=== PATIENT | female | born 1955 | race Caucasian/White ===

== ENCOUNTER 2018-04-06 15:12 | Inpatient (IN) | payer OTHER ==
[2018-04-06 15:43] LABS: #Lymphocytes 2.7 thou/uL (1.20-3.40); #Monocytes 0.8 thou/uL (0.11-0.59); #Neutrophils 7.2 thou/uL (1.40-6.50); %Basophils 0.4 % (0.0-1.0); %Eosinophils 0.2 % (0.0-10.0); %Lymphocytes 25.2 % (21.0-51.0); %Monocytes 7.1 % (0.0-10.0); %Neutrophils 67.1 % (42.0-75.0); Hemoglobin 17.3 g/dL (12.0-16.0); Mean Corpuscular HGB CONC 34.1 g/dL (32.0-36.0); Mean Corpuscular Hemoglobin 31.6 pg (27.0-31.0); Mean Corpuscular Volume 92.7 fL (78.0-98.0); Mean Platelet Volume 8.5 fL (7.4-10.4); Platelet Count 381 thou/uL (130-400); RBC Distribution Width 12.8 % (11.5-14.5); Red Blood Cell (RBC) Count 5.49 mill/uL (4.20-5.40); White Blood Cell (WBC) Count 10.8 thou/uL (4.8-10.8)
[2018-04-06 15:45] LABS: Base Excess-Venous -8.1 mmol/L (0 (+/- 2.5)); Bicarbonate (HCO3v) 14.2 mmol/L (22.0-29.0); CO2 Tension (PvCO2) 23.9 mmHg (41.0-51.0); Calcium, Ionized 1.13 mmol/L (1.12-1.32); Hemoglobin - Calc 20.3 g/dL (12.0-18.0); O2 Tension (PvO2) 54.2 mmHg (35.0-45.0); Potassium 3.9 mmol/L (3.4-4.7); T. Carbon Dioxide 14.9 mmol/L (1.0-85.0); pH (Venous) 7.381 (7.35-7.45); vO2 Saturation-calc 88.1 % (94-98)
[2018-04-06 16:06] LABS: ALT (SGPT) 85 U/L (8-55); AST (SGOT) 43 U/L (5-34); Albumin 4.6 g/dL (3.4-4.8); Alkaline Phosphatase 112 U/L (40-150); Anion Gap 31 mmol/L (10-20); BUN (Urea Nitrogen) 29 mg/dL (9.8-20.1); Bilirubin, Total 0.8 mg/dL (0.2-1.2); Calc. Creatinine Clearance 0 mL/min (70-130); Calcium 11.4 mg/dL (7.8-10.44); Carbon Dioxide 13 mmol/L (23-31); Chloride 90 mmol/L (98-107); Estimated GFR-MDRD 24; Globulin 5.1 g/dL (2.4-3.5); Potassium 4.4 mmol/L (3.5-5.1); Protein, Total 9.7 g/dL (6.0-8.3); Sodium 130 mmol/L (136-145)
[2018-04-06 16:10] LABS: Glucose 745 mg/dL (80-115)
[2018-04-06] MEDS ORDERED: Insulin Regular 300 UNITS/3 ML VIAL ONE (16:20)
[2018-04-06 16:25] LABS: Lipase 166 U/L (8-78); Magnesium 2.4 mg/dL (1.6-2.6)
[2018-04-06] MEDS ORDERED: Insulin Regular 100 units/100 ml in NS IVPB SCH (16:30)
[2018-04-06 16:31] LABS: Osmolality, Serum 336 mOsm/kg (280-295)
[2018-04-06] MEDS ORDERED: hydrALAZINE 20 MG/ML VIAL ONE (18:12)
[2018-04-06] MEDS ORDERED: Pantoprazole 40 MG VIAL ONE (18:12)
[2018-04-06] MEDS ORDERED: Ondansetron PF 4 MG/2 ML Vial ONE ×2 (18:12→19:01)
[2018-04-06 18:21] LABS: Bilirubin Negative (Negative); Blood, Urine Negative (Negative); Clarity CLEAR (Clear); Glucose, Urine (Dipstick) >=1000 mg/dL (Negative); Leukocyte Negative (Negative); Nitrite Negative (Negative); Protein, Urine (Dipstick) Negative (Neg-Trace); Specific Gravity, Urine 1.027 (1.002-1.036); Urobilinogen 0.2 mg/dL (0.2-1.0)
[2018-04-06] MEDS: NS 0.9% w/ 20 MEQ KCL 1,000 ML IV SCH ×3 (20:58→23:54)
[2018-04-06 21:03] LABS: Anion Gap 19 mmol/L (10-20); BUN (Urea Nitrogen) 23 mg/dL (9.8-20.1); Calc. Creatinine Clearance 0 mL/min (70-130); Calcium 8.9 mg/dL (7.8-10.44); Carbon Dioxide 14 mmol/L (23-31); Chloride 108 mmol/L (98-107); Estimated GFR-MDRD 37; Glucose 344 mg/dL (80-115); Potassium 3.8 mmol/L (3.5-5.1); Sodium 137 mmol/L (136-145)
[2018-04-06] MEDS ORDERED: CCU Electrolyte Replacement 1 EACH FS ONE (21:29)
[2018-04-06] MEDS ORDERED: Bisacodyl 5 MG TAB PO PRN (21:29)
[2018-04-06] MEDS ORDERED: HumaLOG 300 UNITS/3 ML VIAL SC PRN ×2 (21:29)
[2018-04-06] MEDS ORDERED: Sodium Chloride 0.9% 1,000 ML IV PRN ×4 (21:29)
[2018-04-06] MEDS ORDERED: D5 1/2 NS w/20 mEq KCL 1,000 ML IV PRN (21:29)
[2018-04-06] MEDS ORDERED: CCU Electrolyte Replacement 1 EACH IVPB SCH (21:29)
[2018-04-06] MEDS ORDERED: NS 0.9% w/ 20 MEQ KCL 1,000 ML IV PRN ×2 (21:29)
[2018-04-06] MEDS ORDERED: Dextrose 5% in Water 1,000 ML IV PRN (21:29)
[2018-04-06] MEDS ORDERED: Dextrose 50% Abboject 50 ML SYRINGE SLOW IVP PRN (21:29)
[2018-04-06] MEDS ORDERED: Dextrose 5 %-0.45 % NaCl 1,000 ML IV PRN (21:29)
[2018-04-06] MEDS ORDERED: Senokot S 8.6-50 MG TAB PO PRN (21:29)
[2018-04-06] MEDS ORDERED: Potassium Chloride 20 MEQ TAB PO PRN (21:58)
[2018-04-06] MEDS ORDERED: Magnesium Oxide 400 MG TAB PO PRN ×2 (21:58)
[2018-04-06] MEDS ORDERED: Potassium Chloride 40 MEQ in Premix Bag 1 BAG IVPB PRN (21:58)
[2018-04-06] MEDS ORDERED: Potassium Phosphate 15 MMOL in Sodium Chloride 0.9% 250 ML 250 ML IV PRN (21:58)
[2018-04-06] MEDS ORDERED: Potassium Phosphate 12 MMOL in Sodium Chloride 0.9% 250 ML 250 ML IV PRN (21:58)
[2018-04-06] MEDS ORDERED: Magnesium 2 GM/NS 0.9% 100 ML 2 GM in Premix Bag 1 BAG IVPB PRN (21:58)
[2018-04-06] MEDS ORDERED: Potassium Chloride 40 MEQ in Sodium Chloride 0.9% 250 ML 250 ML IVPB PRN (21:58)
[2018-04-06] MEDS ORDERED: CCU ELECTROLYTE REPLACEMENT PROTOCOL FS PRN (21:58)
[2018-04-06] MEDS ORDERED: Potassium Phosphate 9 MMOL in Sodium Chloride 0.9% 100 ML IVPB PRN (21:58)
[2018-04-06] MEDS: Ondansetron PF 4 MG/2 ML Vial IVP PRN (22:23)
[2018-04-06 22:39] VITALS: BMI 24.8
[2018-04-06] MEDS: Sodium Chloride 0.9% 1,000 ML IV SCH (23:52)
[2018-04-07 01:59] LABS: Anion Gap 11 mmol/L (10-20); BUN (Urea Nitrogen) 17 mg/dL (9.8-20.1); Calc. Creatinine Clearance 53 mL/min (70-130); Calcium 8.4 mg/dL (7.8-10.44); Carbon Dioxide 15 mmol/L (23-31); Chloride 114 mmol/L (98-107); Estimated GFR-MDRD 51; Glucose 258 mg/dL (80-115); Potassium 3.8 mmol/L (3.5-5.1); Sodium 136 mmol/L (136-145)
[2018-04-07] MEDS: Sodium Chloride 0.9% 1,000 ML IV SCH (03:17)
[2018-04-07] MEDS: Ondansetron PF 4 MG/2 ML Vial IVP PRN (05:42)
[2018-04-07] MEDS: NS 0.9% w/ 20 MEQ KCL 1,000 ML IV SCH (05:42)
[2018-04-07] MEDS: Acetaminophen 325 MG TAB PO PRN (05:42)
[2018-04-07] MEDS: Levothyroxine Sodium 75 MCG TAB PO SCH (05:42)
[2018-04-07 06:53] LABS: Anion Gap 12 mmol/L (10-20); BUN (Urea Nitrogen) 14 mg/dL (9.8-20.1); Calc. Creatinine Clearance 62 mL/min (70-130); Calcium 8.4 mg/dL (7.8-10.44); Carbon Dioxide 14 mmol/L (23-31); Chloride 115 mmol/L (98-107); Estimated GFR-MDRD 63; Glucose 101 mg/dL (80-115); Potassium 3.7 mmol/L (3.5-5.1); Sodium 137 mmol/L (136-145)
--- NOTE | 2018-04-07 07:58 | HP ---
CHIEF COMPLAINT: The patient is coming in with abdominal pain and nausea. HISTORY OF PRESENT ILLNESS: This is a 63-year-old female with past medical history of hypothyroidism, gastroesophageal reflux, hyperlipidemia, hypertension, diabetes mellitus type 2, presenting with elevated blood sugars, polydipsia, polyuria, and abdominal pain with associated symptoms of nausea and vomiting, which has been ongoing for the past 2 weeks and now worsened. The patient states that her abdominal pain is generalized and is diffuse, and dull in nature. She is having associated symptoms of nausea and vomiting, and nothing seems to help, and that prompted her to come into the hospital. The patient denies any fever, chills, chest pain, palpitations, constipation, diarrhea, hematochezia, dysuria, hematuria, or melena. Of note, the patient is very noncompliant with her medications, and the patient states that she is not taking her medications and she has noticed that is the reason why her blood pressure has been elevated. REVIEW OF SYSTEMS: Positive for abdominal pain, nausea, vomiting, polydipsia, polyuria, anxiety. Otherwise, as documented in the HPI, all other systems were reviewed and are negative. PAST MEDICAL HISTORY: Hypothyroidism, GERD, hyperlipidemia, hypercholesterolemia, hypertension, diabetes mellitus type 2. PAST SURGICAL HISTORY: No noted surgical history. PSYCHIATRIC HISTORY: Depression, anxiety, suicidal ideation with history that includes suicidal attempts by cutting her wrists and she attempted to kill herself on 02/15/2015. SOCIAL HISTORY: The patient denies alcohol use, denies any illicit drug use. The patient has no smoking history. FAMILY HISTORY: Reviewed and noncontributory to this visit. ALLERGIES: NO KNOWN DRUG ALLERGIES. CURRENT MEDICATIONS: 1. Abilify 10 mg. 2. Atorvastatin 80 mg. 3. Hydrochlorothiazide 25 mg. 4. Levothyroxine 75 mcg. 5. Venlafaxine 150 mg. 6. Metformin 500 mg. PHYSICAL EXAMINATION: VITAL SIGNS: The patient's blood pressure is 161/93, pulse of 109, respiratory rate was 14, temperature 98.7. GENERAL: The patient is alert, oriented x3, not in acute distress. The patient is lying in bed. The patient is able to speak to me in full sentences. HEENT: Normocephalic and atraumatic. Pupils are equal, round, and reactive to light. Extraocular movements are intact. No scleral icterus. No conjunctival pallor. Mucous membranes are dry. NECK: No JVD. Trachea is midline. Full range of motion. Supple. LUNGS: Clear to auscultation bilaterally. No wheezing, no rales, no rhonchi appreciated. CARDIAC: Positive S1 and S2. Regular rate and rhythm. No murmurs, no gallops, no rubs appreciated. ABDOMEN: Mild tenderness with palpation of the abdomen. Normal bowel sounds. No peritoneal signs. No palpable masses. NEUROLOGIC: Cranial nerves 2 through 12 are grossly intact. No neurological deficits noted. EXTREMITIES: The patient has 5/5 upper extremity strength and 5/5 lower extremity strength. Good pulses in the upper and lower extremities bilaterally. No edema noted. SKIN: Warm, dry, and intact. PSYCHIATRIC: The patient is alert, oriented x3. The patient has a normal affect. LABORATORY DATA: WBC is 10.8, hemoglobin is 17.3, hematocrit is 50.9, platelets 381. VBGs, pH is 7.3, pCO2 is 23.9, pO2 is 54.2, bicarbonate 14.2. Electrolytes, sodium is 130, potassium is 4.4, chloride is 90, carbon dioxide of 13, anion gap of 31. BUN is 29, creatinine is 2.07. Glucose of 745. Magnesium is 2.4. Lipase is 166. Urinalysis is negative for nitrites and leukocyte esterase. ASSESSMENT AND PLAN: This is a 63-year-old female who has been very noncompliant with her medication, is being admitted for; 1. Hyperglycemic hyperosmolar syndrome. At this point, the patient has been started on the diabetic ketoacidosis protocol. We will continue the patient on the diabetic ketoacidosis protocol. We have admitted the patient to the [facility]. We will monitor the patient closely. We will follow up on strict glucose control. We will try and keep the patient's glucose between 140 to 180. We have started insulin sliding scale. We will adjust the patient's diabetes medications. 2. Acute kidney injury due to dehydration. The patient is on IV hydration. We will continue the patient on IV hydration. We will monitor morning labs. We will follow up on morning labs. 3. Hyponatremia due to hyperglycemia. At this point, we will continue to correct the patient's glucose and we will follow up on morning labs. 4. Dehydration. We will continue the patient on IV hydration. We will monitor the patient's hydration status. 5. Hyperlipidemia. We will continue the patient on her home medications. 6. Hypertension, currently uncontrolled. We will continue the patient on home medications and we will advice the patient to be compliant with medications. 7. Deep venous thrombosis and gastrointestinal prophylaxis. Job ID: [id number]
[2018-04-07] MEDS ORDERED: Dextrose 5% in Water 1,000 ML IV PRN (08:39)
[2018-04-07] MEDS ORDERED: Dextrose 50% Abboject 50 ML SYRINGE SLOW IVP PRN (08:39)
[2018-04-07] MEDS: Famotidine/PF 20 mg/2ml Vial SLOW IVP SCH ×2 (09:50→20:54)
[2018-04-07] MEDS: Famotidine 20 MG TAB PO SCH ×2 (10:08→20:53)
[2018-04-07] MEDS: Venlafaxine HCl XR 150 MG CAP PO SCH (10:08)
[2018-04-07] MEDS: metFORMIN XR 500 MG TAB PO SCH (10:08)
[2018-04-07] MEDS: Enoxaparin Sodium 40 MG/0.4 ML SYRINGE SC SCH (10:08)
[2018-04-07] MEDS: 1/2 NS w/KCL 20 mEq 1,000 ML IV SCH (12:43)
[2018-04-07] MEDS: Insulin Regular 300 UNITS/3 ML VIAL SC PRN ×3 (12:44→20:54)
[2018-04-07 13:03] LABS: #Basophils 0.1 thou/uL (0.0-0.2); #Lymphocytes 2.7 thou/uL (1.20-3.40); #Monocytes 1.2 thou/uL (0.11-0.59); %Basophils 0.7 % (0.0-1.0); %Eosinophils 0.3 % (0.0-10.0); %Lymphocytes 22.2 % (21.0-51.0); %Monocytes 9.7 % (0.0-10.0); %Neutrophils 67.1 % (42.0-75.0); Mean Corpuscular HGB CONC 33.6 g/dL (32.0-36.0); Mean Corpuscular Hemoglobin 31.4 pg (27.0-31.0); Mean Corpuscular Volume 93.4 fL (78.0-98.0); Mean Platelet Volume 8.9 fL (7.4-10.4); Platelet Count 313 thou/uL (130-400); RBC Distribution Width 12.9 % (11.5-14.5); Red Blood Cell (RBC) Count 4.45 mill/uL (4.20-5.40)
--- NOTE | 2018-04-07 16:56 | CON ---
DATE OF CONSULTATION: 04/07/2018 REASON FOR CONSULTATION: Hyperosmolar nonketotic hyperglycemia. HISTORY OF PRESENT ILLNESS: This is a 63-year-old female, who essentially stopped taking her metformin about 2 weeks ago. She developed polyuria, polydipsia, generalized malaise. She was admitted last time with blood sugar over 700. She was treated with fluid resuscitation and IV insulin and is now better. PAST MEDICAL HISTORY: 1. Bipolar disorder. 2. Type 2 diabetes mellitus, on metformin only. 3. Hypothyroidism. 4. Hyperlipidemia. 5. Gastroesophageal reflux disease. 6. Hypertension. PAST SURGICAL HISTORY: None. SOCIAL HISTORY: The patient does not smoke, does not use illicit drugs. FAMILY MEDICAL HISTORY: Unremarkable. ALLERGIES: NONE. MEDICATIONS: Medications prior to admission: 1. Abilify 10 mg daily. 2. Atorvastatin 80 mg daily. 3. Hydrochlorothiazide 25 mg daily. 4. Metformin XL 500 mg daily. 5. Effexor 150 mg daily. 6. Levothyroxine 75 mcg daily. PHYSICAL EXAMINATION: VITAL SIGNS: Temperature is 98.4, pulse 89, respirations 13, O2 saturation 98% on room air, and blood pressure 126/66. GENERAL: She is awake and alert, in no distress. HEENT: Unremarkable. NECK: No JVD. LUNGS: Clear. CARDIAC: S1 and S2, regular. ABDOMEN: Somewhat tympanic, but bowel sounds normoactive. EXTREMITIES: No clubbing, cyanosis, or edema. LABORATORY DATA: White cell count 10.8, hematocrit 50.9, platelet count 381. Sodium 137, potassium 3.7, chloride 115, CO2 of 14, anion gap 12, BUN 14, creatinine 0.9, last glucose 186. ASSESSMENT: Hyperosmolar nonketotic hyperglycemia - better with hydration and insulin. PLAN: 1. Discontinue insulin drip. 2. Restart metformin. 3. Start a moderate sliding scale. 4. She is doing well this afternoon. She can transfer out to the floor. Job ID: [id number]
--- NOTE | 2018-04-07 17:56 | PDOC.PN ---
- Subjective Encounter Start Date: 04/07/18 Encounter Start Time: 11:00 Pt seen for followup re: hyperosmolar hyperglycemic state. Denies chest pain, shortness of breath, fevers or chills. - Objective Resuscitation Status - Order Detail: 04/06/18 21:29 Resuscitation Status Routine Resuscitation Status: FULL: Full Resuscitation MAR Reviewed: Yes Vital Signs & Weight: Vital Signs (12 hours) Temp Pulse Resp BP Pulse Ox 04/07/18 11:35 99.0 F 91 18 133/77 95 04/07/18 07:55 98 04/07/18 07:28 98.4 F 89 13 126/66 95 Weight Weight 135 lb 14.4 oz I&O: 04/06/18 04/07/18 04/08/18 06:59 06:59 06:59 Intake Total 3558 1200 Output Total 600 600 Balance 2958 600 Result Diagrams: 04/07/18 05:36 04/07/18 05:38 Additional Labs: Accuchecks 04/07/18 04/07/18 04/07/18 16:38 10:39 08:12 POC Glucose 265 H 281 H 186 H 04/07/18 04/07/18 04/07/18 06:40 05:40 04:02 POC Glucose 139 H 96 197 H 04/07/18 04/07/18 04/06/18 02:25 00:32 23:28 POC Glucose 284 H 223 H 176 H 04/06/18 04/06/18 04/06/18 22:11 21:00 19:59 POC Glucose 221 H 292 H 337 H 04/06/18 04/06/18 18:28 15:19 POC Glucose 346 H Greater than 550 H* Phys Exam - Physical Examination Constitutional: NAD HEENT: moist MMs, sclera anicteric, oral pharynx no lesions, 2+ tonsils Neck: no nodes, no JVD, supple, full ROM Respiratory: no wheezing, no rales, no rhonchi, clear to auscultation bilateral Cardiovascular: RRR, no rub S1, S2 Gastrointestinal: soft, non-tender, no distention, positive bowel sounds Neurological: moves all 4 limbs Psychiatric: normal affect Deviation from normal: Oriented to person and place, not to time Dx/Plan (1) Uncontrolled type 2 DM with hyperosmolar nonketotic hyperglycemia Code(s): E11.00 - TYPE 2 DIAB W HYPROSM W/O NONKET HYPRGLY-HYPROS COMA ([facility]) Status: Acute Comment: Improved, transitioning to SC insulin (2) Dyslipidemia Code(s): E78.5 - HYPERLIPIDEMIA, UNSPECIFIED Status: Chronic Comment: on statin (3) Hypothyroidism Code(s): E03.9 - HYPOTHYROIDISM, UNSPECIFIED Status: Chronic (4) GERD (gastroesophageal reflux disease) Code(s): K21.9 - GASTRO-ESOPHAGEAL REFLUX DISEASE WITHOUT ESOPHAGITIS Status: Chronic Comment: stable (5) Bipolar disorder Code(s): F31.9 - BIPOLAR DISORDER, UNSPECIFIED Status: Chronic Comment: on Abilify - Plan * . Review of Systems - Review of Systems Constitutional: negative: fever, chills, sweats, weakness, malaise Respiratory: negative: Cough, Shortness of Breath, SOB with Excertion, Pleuritic Pain, Wheezing Cardiovascular: negative: chest pain, palpitations, orthopnea, paroxysmal nocturnal dyspnea, edema, light headedness Gastrointestinal: negative: Nausea, Vomiting, Abdominal Pain, Diarrhea, Constipation, Melena, Hematochezia Genitourinary: negative: Dysuria, Frequency, Incontinence, Hematuria, Retention Skin: negative: Rash, Lesions, Jeanmarie, Bruising - Medications/Allergies Allergies/Adverse Reactions: Allergies Allergy/AdvReac Type Severity Reaction Status Date / Time No Known Allergies Allergy Verified 04/06/18 20:24 Medications: Current Medications Acetaminophen (Tylenol) 650 mg PO Q4H PRN PRN Reason: Headache/Fever/Mild Pain (1-3) Last Admin: 04/07/18 05:42 Dose: 650 mg Aripiprazole (Abilify) 10 mg PO HS K[facility] Atorvastatin Calcium (Lipitor) 80 mg PO HS [facility] Bisacodyl (Dulcolax) 10 mg PO DAILYPRN PRN PRN Reason: Constipation Dextrose/Water (Dextrose 50%) 25 gm SLOW IVP PRN PRN PRN Reason: Hypoglycemia Enoxaparin Sodium (Lovenox) 40 mg SC 0900 [facility] Last Admin: 04/07/18 10:08 Dose: 40 mg Famotidine (Pepcid) 20 mg SLOW IVP Q12HR [facility] Last Admin: 04/07/18 09:50 Dose: Not Given Famotidine (Pepcid) 20 mg PO BID [facility] Last Admin: 04/07/18 10:08 Dose: 20 mg Glucagon (Glucagon) 1 mg IM PRN PRN PRN Reason: Hypoglycemia Glucagon (Glucagon) 1 mg IM PRN PRN PRN Reason: Hypoglycemia Potassium Chloride/Sodium Chloride (1/2 Ns W/Kcl 20 Meq) 1,000 mls @ 75 mls/hr IV .[id number] [facility] Last Admin: 04/07/18 12:43 Dose: 1,000 mls Dextrose/Water (D5w) 1,000 mls @ 0 mls/hr IV .Q0M PRN PRN Reason: Hypoglycemia Insulin Human Regular (Humulin R) 0 units SC .MODERATE SLIDING SC PRN PRN Reason: Moderate Correctional Scale Last Admin: 04/07/18 16:42 Dose: 6 unit Levothyroxine Sodium (Synthroid) 75 mcg PO 0600 [facility] Last Admin: 04/07/18 05:42 Dose: 75 mcg Magnesium Oxide (Magnesium Oxide) 400 mg PO BIDPRN PRN PRN Reason: FOR SERUM MAG 1.4 - 2.0 Magnesium Oxide (Magnesium Oxide) 800 mg PO PRN PRN PRN Reason: FOR SERUM MAG < 1.4 Metformin HCl (Glucophage Xr) 500 mg PO DAILY [facility] Last Admin: 04/07/18 10:08 Dose: 500 mg Ccu Electrolyte (Replacement Protocol) 0 each FS PRN PRN PRN Reason: FOR ELECTROLYTE REPLACEMENT Ondansetron HCl (Zofran Odt) 4 mg PO Q6H PRN PRN Reason: Nausea/Vomiting Ondansetron HCl (Zofran) 4 mg IVP Q6H PRN PRN Reason: Nausea/Vomiting Last Admin: 04/07/18 05:42 Dose: 4 mg Senna/Docusate Sodium (Senokot S) 2 tab PO BID PRN PRN Reason: Constipation Venlafaxine HCl (Effexor Xr) 150 mg PO DAILY [facility] Last Admin: 04/07/18 10:08 Dose: 150 mg
[2018-04-07] MEDS: Atorvastatin Calcium 40 MG TAB PO SCH (20:53)
[2018-04-07] MEDS: Aripiprazole 10 MG TAB PO SCH (20:53)
[2018-04-08] MEDS: 1/2 NS w/KCL 20 mEq 1,000 ML IV SCH ×2 (02:14→16:43)
[2018-04-08 04:08] LABS: #Basophils 0.1 thou/uL (0.0-0.2); #Eosinphils 0.4 thou/uL (0.0-0.7); #Lymphocytes 4.1 thou/uL (1.20-3.40); #Neutrophils 5.9 thou/uL (1.40-6.50); %Basophils 0.8 % (0.0-1.0); %Eosinophils 3.4 % (0.0-10.0); %Lymphocytes 35.5 % (21.0-51.0); %Monocytes 8.9 % (0.0-10.0); %Neutrophils 51.4 % (42.0-75.0); Hemoglobin 13.8 g/dL (12.0-16.0); Mean Corpuscular HGB CONC 34.1 g/dL (32.0-36.0); Mean Corpuscular Hemoglobin 31.2 pg (27.0-31.0); Mean Corpuscular Volume 91.6 fL (78.0-98.0); Mean Platelet Volume 8.2 fL (7.4-10.4); Platelet Count 302 thou/uL (130-400); RBC Distribution Width 12.7 % (11.5-14.5); Red Blood Cell (RBC) Count 4.43 mill/uL (4.20-5.40); White Blood Cell (WBC) Count 11.4 thou/uL (4.8-10.8)
[2018-04-08 04:26] LABS: Carbon Dioxide 18 mmol/L (23-31); Glucose 235 mg/dL (80-115)
[2018-04-08 04:30] LABS: Chloride 109 mmol/L (98-107); Potassium 3.2 mmol/L (3.5-5.1); Sodium 133 mmol/L (136-145)
[2018-04-08 04:31] LABS: Calcium 8.3 mg/dL (7.8-10.44)
[2018-04-08 04:33] LABS: Anion Gap 10 mmol/L (10-20)
[2018-04-08 04:34] LABS: Calc. Creatinine Clearance 64 mL/min (70-130); Estimated GFR-MDRD 62
[2018-04-08 04:36] LABS: BUN (Urea Nitrogen) Less than 20 mg/dL (9.8-20.1)
[2018-04-08] MEDS: Levothyroxine Sodium 75 MCG TAB PO SCH (06:07)
[2018-04-08] MEDS: Insulin Regular 300 UNITS/3 ML VIAL SC PRN ×4 (06:08→21:01)
[2018-04-08] MEDS ORDERED: Potassium Chloride 20 MEQ TAB PO SCH (09:30)
[2018-04-08] MEDS: Enoxaparin Sodium 40 MG/0.4 ML SYRINGE SC SCH (09:32)
[2018-04-08] MEDS: Famotidine/PF 20 mg/2ml Vial SLOW IVP SCH ×2 (09:32→21:15)
[2018-04-08] MEDS: Famotidine 20 MG TAB PO SCH ×2 (09:32→21:02)
[2018-04-08] MEDS: metFORMIN XR 500 MG TAB PO SCH (09:32)
[2018-04-08] MEDS: Venlafaxine HCl XR 150 MG CAP PO SCH (09:33)
--- NOTE | 2018-04-08 12:18 | PRG ---
DATE OF SERVICE: 04/08/2018 SUBJECTIVE: She is awake, alert, feels fine, has no acute complaints. OBJECTIVE: VITAL SIGNS: On exam, temperature 98.8, pulse 90, respirations 15, O2 sat 95%, and blood pressure 130/69. HEENT: Unremarkable. NECK: No JVD. CHEST: Clear. CARDIAC: S1 and S2, regular. ABDOMEN: Soft. EXTREMITIES: No edema. LABORATORY DATA: White blood cell count 11.4, hematocrit 40.6, and platelet count 302. Sodium 133, potassium 3.2, chloride 109, CO2 18. BUN less than 20, creatinine 0.9. Glucose 388. ASSESSMENT: 1. Noncompliant diabetic. 2. Resolved hyperosmolar nonketotic hyperglycemia. PLAN: Basically awaiting for regulation of her blood sugars. She is stable for transfer to the floor. No further recommendations. Will sign off. Please recall further assistance, if needed. Job ID: [id number]
--- NOTE | 2018-04-08 13:20 | PDOC.PN ---
- Subjective Encounter Start Date: 04/08/18 Encounter Start Time: 10:20 Pt seen for followup re: hypokalemia. Denies any complaints. - Objective Resuscitation Status - Order Detail: 04/06/18 21:29 Resuscitation Status Routine Resuscitation Status: FULL: Full Resuscitation Vital Signs & Weight: Vital Signs (12 hours) Temp Pulse Resp BP Pulse Ox 04/08/18 11:11 98.8 F 90 15 130/69 95 04/08/18 08:00 95 04/08/18 07:31 98.5 F 72 16 107/60 93 L 04/08/18 03:40 98.0 F 84 18 154/79 H 95 Weight Weight 140 lb 8 oz I&O: 04/07/18 04/08/18 04/09/18 06:59 06:59 06:59 Intake Total 3558 3470 883 Output Total 600 2400 600 Balance 2958 1070 283 Result Diagrams: 04/08/18 03:43 04/08/18 03:43 Additional Labs: Accuchecks 04/08/18 04/08/18 04/07/18 10:32 06:08 20:19 POC Glucose 388 H 231 H 272 H 04/07/18 16:38 POC Glucose 265 H Phys Exam - Physical Examination Constitutional: NAD HEENT: moist MMs Neck: supple Respiratory: clear to auscultation bilateral Cardiovascular: RRR Gastrointestinal: soft Neurological: moves all 4 limbs Psychiatric: normal affect Dx/Plan (1) Hypokalemia Code(s): E87.6 - HYPOKALEMIA Status: Acute Comment: replace potassium (2) Dyslipidemia Code(s): E78.5 - HYPERLIPIDEMIA, UNSPECIFIED Status: Chronic Comment: on statin (3) DM2 (diabetes mellitus, type 2) Status: Chronic Comment: on accuchecks, insulin sliding scale and metformin. Check HbA1c (4) Hypothyroidism Code(s): E03.9 - HYPOTHYROIDISM, UNSPECIFIED Status: Chronic Comment: continue synthroid (5) GERD (gastroesophageal reflux disease) Code(s): K21.9 - GASTRO-ESOPHAGEAL REFLUX DISEASE WITHOUT ESOPHAGITIS Status: Chronic Comment: stable (6) Bipolar disorder Code(s): F31.9 - BIPOLAR DISORDER, UNSPECIFIED Status: Chronic Comment: continue Abilify (7) Uncontrolled type 2 DM with hyperosmolar nonketotic hyperglycemia Code(s): E11.00 - TYPE 2 DIAB W HYPROSM W/O NONKET HYPRGLY-HYPROS COMA ([facility]) Status: Resolved - Plan * . Review of Systems - Review of Systems Respiratory: negative: Cough, Shortness of Breath, SOB with Excertion, Pleuritic Pain, Wheezing Cardiovascular: negative: chest pain, palpitations, orthopnea, paroxysmal nocturnal dyspnea, edema, light headedness - Medications/Allergies Allergies/Adverse Reactions: Allergies Allergy/AdvReac Type Severity Reaction Status Date / Time No Known Allergies Allergy Verified 04/06/18 20:24 Medications: Current Medications Acetaminophen (Tylenol) 650 mg PO Q4H PRN PRN Reason: Headache/Fever/Mild Pain (1-3) Last Admin: 04/07/18 05:42 Dose: 650 mg Aripiprazole (Abilify) 10 mg PO HS [facility] Last Admin: 04/07/18 20:53 Dose: 10 mg Atorvastatin Calcium (Lipitor) 80 mg PO HS [facility] Last Admin: 04/07/18 20:53 Dose: 80 mg Bisacodyl (Dulcolax) 10 mg PO DAILYPRN PRN PRN Reason: Constipation Dextrose/Water (Dextrose 50%) 25 gm SLOW IVP PRN PRN PRN Reason: Hypoglycemia Enoxaparin Sodium (Lovenox) 40 mg SC 0900 [facility] Last Admin: 04/08/18 09:32 Dose: 40 mg Famotidine (Pepcid) 20 mg SLOW IVP Q12HR [facility] Last Admin: 04/08/18 09:32 Dose: Not Given Famotidine (Pepcid) 20 mg PO BID [facility] Last Admin: 04/08/18 09:32 Dose: 20 mg Glucagon (Glucagon) 1 mg IM PRN PRN PRN Reason: Hypoglycemia Potassium Chloride/Sodium Chloride (1/2 Ns W/Kcl 20 Meq) 1,000 mls @ 75 mls/hr IV .[id number] [facility] Last Admin: 04/08/18 02:14 Dose: 1,000 mls Dextrose/Water (D5w) 1,000 mls @ 0 mls/hr IV .Q0M PRN PRN Reason: Hypoglycemia Insulin Human Regular (Humulin R) 0 units SC .MODERATE SLIDING SC PRN PRN Reason: Moderate Correctional Scale Last Admin: 04/08/18 10:49 Dose: 10 unit Levothyroxine Sodium (Synthroid) 75 mcg PO 0600 [facility] Last Admin: 04/08/18 06:07 Dose: 75 mcg Magnesium Oxide (Magnesium Oxide) 400 mg PO BIDPRN PRN PRN Reason: FOR SERUM MAG 1.4 - 2.0 Magnesium Oxide (Magnesium Oxide) 800 mg PO PRN PRN PRN Reason: FOR SERUM MAG < 1.4 Metformin HCl (Glucophage Xr) 500 mg PO DAILY [facility] Last Admin: 04/08/18 09:32 Dose: 500 mg Ccu Electrolyte (Replacement Protocol) 0 each FS PRN PRN PRN Reason: FOR ELECTROLYTE REPLACEMENT Ondansetron HCl (Zofran Odt) 4 mg PO Q6H PRN PRN Reason: Nausea/Vomiting Ondansetron HCl (Zofran) 4 mg IVP Q6H PRN PRN Reason: Nausea/Vomiting Last Admin: 04/07/18 05:42 Dose: 4 mg Senna/Docusate Sodium (Senokot S) 2 tab PO BID PRN PRN Reason: Constipation Venlafaxine HCl (Effexor Xr) 150 mg PO DAILY [facility] Last Admin: 04/08/18 09:33 Dose: 150 mg
[2018-04-08 13:45] LABS: Hemoglobin A1c 11.1 % (4.0-6.0)
[2018-04-08] MEDS: Acetaminophen 325 MG TAB PO PRN (17:36)
[2018-04-08] MEDS: Atorvastatin Calcium 40 MG TAB PO SCH (21:02)
[2018-04-08] MEDS: Aripiprazole 10 MG TAB PO SCH (21:15)
[2018-04-09] MEDS: 1/2 NS w/KCL 20 mEq 1,000 ML IV SCH ×3 (00:45→21:43)
[2018-04-09] MEDS: Levothyroxine Sodium 75 MCG TAB PO SCH (05:15)
[2018-04-09] MEDS: Insulin Regular 300 UNITS/3 ML VIAL SC PRN ×3 (06:16→22:04)
[2018-04-09 07:10] LABS: #Basophils 0.1 thou/uL (0.0-0.2); #Eosinphils 0.4 thou/uL (0.0-0.7); #Lymphocytes 2.9 thou/uL (1.20-3.40); #Neutrophils 8.7 thou/uL (1.40-6.50); %Basophils 0.9 % (0.0-1.0); %Eosinophils 3.1 % (0.0-10.0); %Monocytes 7.9 % (0.0-10.0); %Neutrophils 66.1 % (42.0-75.0); Mean Corpuscular HGB CONC 33.3 g/dL (32.0-36.0); Mean Corpuscular Hemoglobin 31.1 pg (27.0-31.0); Mean Corpuscular Volume 93.4 fL (78.0-98.0); Mean Platelet Volume 8.7 fL (7.4-10.4); Platelet Count 296 thou/uL (130-400); RBC Distribution Width 12.9 % (11.5-14.5); Red Blood Cell (RBC) Count 4.81 mill/uL (4.20-5.40); White Blood Cell (WBC) Count 13.1 thou/uL (4.8-10.8)
[2018-04-09 07:43] LABS: Anion Gap 16 mmol/L (10-20); BUN (Urea Nitrogen) 8 mg/dL (9.8-20.1); Calc. Creatinine Clearance 68 mL/min (70-130); Calcium 8.9 mg/dL (7.8-10.44); Carbon Dioxide 14 mmol/L (23-31); Chloride 105 mmol/L (98-107); Estimated GFR-MDRD 67; Glucose 282 mg/dL (80-115); Potassium 4.3 mmol/L (3.5-5.1); Sodium 131 mmol/L (136-145)
[2018-04-09] MEDS: Venlafaxine HCl XR 150 MG CAP PO SCH (09:06)
[2018-04-09] MEDS: Famotidine 20 MG TAB PO SCH ×2 (09:06→20:55)
[2018-04-09] MEDS: Enoxaparin Sodium 40 MG/0.4 ML SYRINGE SC SCH (09:07)
[2018-04-09] MEDS: Acetaminophen 325 MG TAB PO PRN ×3 (09:07→20:54)
[2018-04-09] MEDS: Famotidine/PF 20 mg/2ml Vial SLOW IVP SCH ×2 (11:15→20:50)
[2018-04-09] MEDS: metFORMIN XR 500 MG TAB PO SCH (11:16)
--- NOTE | 2018-04-09 14:20 | PDOC.PN ---
- Subjective Encounter Start Date: 04/09/18 Encounter Start Time: 09:40 Pt seen for followup re: hyperglycemia. Denies chest pain,shortness of breath, fevers or chills. - Objective Resuscitation Status - Order Detail: 04/06/18 21:29 Resuscitation Status Routine Resuscitation Status: FULL: Full Resuscitation MAR Reviewed: Yes Vital Signs & Weight: Vital Signs (12 hours) Temp Pulse Resp BP Pulse Ox 04/09/18 08:13 98.1 F 84 16 135/78 96 04/09/18 03:42 98.3 F 87 20 141/84 H 92 L Weight Weight 140 lb 8 oz I&O: 04/08/18 04/09/18 04/10/18 06:59 06:59 06:59 Intake Total 3470 2453 Output Total 2400 600 Balance 1070 1853 Result Diagrams: 04/10/18 05:56 04/10/18 05:56 Additional Labs: Accuchecks 04/09/18 04/09/18 04/08/18 11:23 05:19 20:50 POC Glucose 338 H 197 H 294 H 04/08/18 16:50 POC Glucose 209 H Labs reviewed by me Phys Exam - Physical Examination Constitutional: NAD HEENT: moist MMs Neck: supple Respiratory: clear to auscultation bilateral Cardiovascular: RRR Gastrointestinal: soft Neurological: moves all 4 limbs Psychiatric: normal affect Dx/Plan (1) Hyperglycemia Code(s): R73.9 - HYPERGLYCEMIA, UNSPECIFIED Status: Acute Comment: increase metformin dose, add glyburide. (2) Dyslipidemia Code(s): E78.5 - HYPERLIPIDEMIA, UNSPECIFIED Status: Chronic Comment: continue statin (3) DM2 (diabetes mellitus, type 2) Status: Chronic Comment: metformin dose being increased, glyburide added (4) Hypothyroidism Code(s): E03.9 - HYPOTHYROIDISM, UNSPECIFIED Status: Chronic Comment: on synthroid (5) GERD (gastroesophageal reflux disease) Code(s): K21.9 - GASTRO-ESOPHAGEAL REFLUX DISEASE WITHOUT ESOPHAGITIS Status: Chronic Comment: stable (6) Bipolar disorder Code(s): F31.9 - BIPOLAR DISORDER, UNSPECIFIED Status: Chronic Comment: continue Abilify (7) Uncontrolled type 2 DM with hyperosmolar nonketotic hyperglycemia Code(s): E11.00 - TYPE 2 DIAB W HYPROSM W/O NONKET HYPRGLY-HYPROS COMA ([facility]) Status: Resolved (8) Hypokalemia Code(s): E87.6 - HYPOKALEMIA Status: Resolved - Plan * . Mild hyponatremia, likely asymptomatic Review of Systems - Review of Systems Respiratory: negative: Cough, Shortness of Breath, SOB with Excertion, Pleuritic Pain, Wheezing Cardiovascular: negative: chest pain, palpitations, orthopnea, paroxysmal nocturnal dyspnea, edema, light headedness - Medications/Allergies Allergies/Adverse Reactions: Allergies Allergy/AdvReac Type Severity Reaction Status Date / Time No Known Allergies Allergy Verified 04/06/18 20:24 Medications: Current Medications Acetaminophen (Tylenol) 650 mg PO Q4H PRN PRN Reason: Headache/Fever/Mild Pain (1-3) Last Admin: 04/09/18 09:07 Dose: 650 mg Aripiprazole (Abilify) 10 mg PO HS [facility] Last Admin: 04/08/18 21:15 Dose: 10 mg Atorvastatin Calcium (Lipitor) 80 mg PO [facility] Last Admin: 04/08/18 21:02 Dose: 80 mg Bisacodyl (Dulcolax) 10 mg PO DAILYPRN PRN PRN Reason: Constipation Dextrose/Water (Dextrose 50%) 25 gm SLOW IVP PRN PRN PRN Reason: Hypoglycemia Enoxaparin Sodium (Lovenox) 40 mg SC 0900 [facility] Last Admin: 04/09/18 09:07 Dose: 40 mg Famotidine (Pepcid) 20 mg SLOW IVP Q12HR [facility] Last Admin: 04/09/18 11:15 Dose: Not Given Famotidine (Pepcid) 20 mg PO BID [facility] Last Admin: 04/09/18 09:06 Dose: 20 mg Glucagon (Glucagon) 1 mg IM PRN PRN PRN Reason: Hypoglycemia Glyburide (Micronase) 2.5 mg PO QAM-WM [facility] Glyburide (Micronase) 2.5 mg PO ONE [facility] Potassium Chloride/Sodium Chloride (1/2 Ns W/Kcl 20 Meq) 1,000 mls @ 75 mls/hr IV .[id number] [facility] Last Admin: 04/09/18 05:15 Dose: 1,000 mls Dextrose/Water (D5w) 1,000 mls @ 0 mls/hr IV .Q0M PRN PRN Reason: Hypoglycemia Insulin Human Regular (Humulin R) 0 units SC .MODERATE SLIDING SC PRN PRN Reason: Moderate Correctional Scale Last Admin: 04/09/18 06:16 Dose: 2 unit Levothyroxine Sodium (Synthroid) 75 mcg PO 0600 [facility] Last Admin: 04/09/18 05:15 Dose: 75 mcg Magnesium Oxide (Magnesium Oxide) 400 mg PO BIDPRN PRN PRN Reason: FOR SERUM MAG 1.4 - 2.0 Magnesium Oxide (Magnesium Oxide) 800 mg PO PRN PRN PRN Reason: FOR SERUM MAG < 1.4 Metformin HCl (Glucophage Xr) 1,000 mg PO QAM-[facility] Metformin HCl (Glucophage Xr) 500 mg PO ONE [facility] Ccu Electrolyte (Replacement Protocol) 0 each FS PRN PRN PRN Reason: FOR ELECTROLYTE REPLACEMENT Ondansetron HCl (Zofran Odt) 4 mg PO Q6H PRN PRN Reason: Nausea/Vomiting Ondansetron HCl (Zofran) 4 mg IVP Q6H PRN PRN Reason: Nausea/Vomiting Last Admin: 04/07/18 05:42 Dose: 4 mg Senna/Docusate Sodium (Senokot S) 2 tab PO BID PRN PRN Reason: Constipation Venlafaxine HCl (Effexor Xr) 150 mg PO DAILY [facility] Last Admin: 04/09/18 09:06 Dose: 150 mg
[2018-04-09] MEDS ORDERED: metFORMIN XR 500 MG TAB PO SCH (14:30)
[2018-04-09] MEDS ORDERED: glyBURIDE 2.5 MG TAB PO SCH (14:30)
[2018-04-09] MEDS ORDERED: Sodium Chloride 0.65% Nasal 44 ML BOT EA NARE PRN (19:27)
[2018-04-09] MEDS: Atorvastatin Calcium 40 MG TAB PO SCH (20:54)
[2018-04-09] MEDS: Aripiprazole 10 MG TAB PO SCH (22:04)
[2018-04-10 06:24] LABS: #Basophils 0.1 thou/uL (0.0-0.2); #Eosinphils 0.3 thou/uL (0.0-0.7); #Lymphocytes 2.9 thou/uL (1.20-3.40); #Neutrophils 6.6 thou/uL (1.40-6.50); %Basophils 1.2 % (0.0-1.0); %Lymphocytes 26.6 % (21.0-51.0); %Monocytes 9.1 % (0.0-10.0); %Neutrophils 60.1 % (42.0-75.0); Hemoglobin 15.4 g/dL (12.0-16.0); Mean Corpuscular HGB CONC 33.4 g/dL (32.0-36.0); Mean Corpuscular Hemoglobin 31.4 pg (27.0-31.0); Mean Platelet Volume 9.1 fL (7.4-10.4); Platelet Count 295 thou/uL (130-400)
[2018-04-10 06:43] LABS: Anion Gap 13 mmol/L (10-20); BUN (Urea Nitrogen) 10 mg/dL (9.8-20.1); Calc. Creatinine Clearance 69 mL/min (70-130); Calcium 9.2 mg/dL (7.8-10.44); Carbon Dioxide 16 mmol/L (23-31); Chloride 109 mmol/L (98-107); Estimated GFR-MDRD 68; Glucose 211 mg/dL (80-115); Potassium 4.4 mmol/L (3.5-5.1); Sodium 134 mmol/L (136-145)
[2018-04-10] MEDS: Insulin Regular 300 UNITS/3 ML VIAL SC PRN ×4 (06:44→21:15)
[2018-04-10] MEDS: Levothyroxine Sodium 75 MCG TAB PO SCH (07:31)
[2018-04-10] MEDS ORDERED: glyBURIDE 2.5 MG TAB PO SCH ×2 (08:00→19:15)
[2018-04-10] MEDS: Famotidine 20 MG TAB PO SCH ×2 (08:44→20:00)
[2018-04-10] MEDS: Venlafaxine HCl XR 150 MG CAP PO SCH (08:44)
[2018-04-10] MEDS: metFORMIN XR 500 MG TAB PO SCH (08:44)
[2018-04-10] MEDS: 1/2 NS w/KCL 20 mEq 1,000 ML IV SCH ×2 (10:00→17:13)
[2018-04-10] MEDS: Enoxaparin Sodium 40 MG/0.4 ML SYRINGE SC SCH (10:00)
[2018-04-10] MEDS: Famotidine/PF 20 mg/2ml Vial SLOW IVP SCH ×2 (10:01→20:02)
--- NOTE | 2018-04-10 14:31 | PDOC.PN ---
- Subjective Encounter Start Date: 04/10/18 Encounter Start Time: 12:00 Pt seen for followup re: hyperglycemia. No complaints today. - Objective Resuscitation Status - Order Detail: 04/06/18 21:29 Resuscitation Status Routine Resuscitation Status: FULL: Full Resuscitation MAR Reviewed: Yes Vital Signs & Weight: Vital Signs (12 hours) Temp Pulse Resp BP Pulse Ox 04/10/18 11:51 99.0 F 94 20 131/70 04/10/18 08:13 98.7 F 88 20 134/78 97 Weight Weight 140 lb 8 oz I&O: 04/09/18 04/10/18 04/11/18 06:59 06:59 06:59 Intake Total 2453 2364 Output Total 600 Balance 1853 2364 Result Diagrams: 04/10/18 05:56 04/10/18 05:56 Additional Labs: Accuchecks 04/10/18 04/10/18 04/09/18 11:17 06:02 21:26 POC Glucose 368 H 189 H 262 H Labs reviewed by me Phys Exam - Physical Examination Constitutional: NAD HEENT: moist MMs Neck: supple Respiratory: clear to auscultation bilateral Cardiovascular: RRR Gastrointestinal: soft Neurological: moves all 4 limbs Psychiatric: normal affect Deviation from normal: Oriented to person and place only Dx/Plan (1) Hyperglycemia Code(s): R73.9 - HYPERGLYCEMIA, UNSPECIFIED Status: Acute Comment: increased metformin dose and added glyburide yesterday, continue insulin sliding scale (2) Dyslipidemia Code(s): E78.5 - HYPERLIPIDEMIA, UNSPECIFIED Status: Chronic Comment: on statin (3) DM2 (diabetes mellitus, type 2) Status: Chronic Comment: metformin was increased and glyburide added yesterday. (4) Hypothyroidism Code(s): E03.9 - HYPOTHYROIDISM, UNSPECIFIED Status: Chronic Comment: continue synthroid (5) GERD (gastroesophageal reflux disease) Code(s): K21.9 - GASTRO-ESOPHAGEAL REFLUX DISEASE WITHOUT ESOPHAGITIS Status: Chronic Comment: stable (6) Bipolar disorder Code(s): F31.9 - BIPOLAR DISORDER, UNSPECIFIED Status: Chronic Comment: on Abilify (7) Uncontrolled type 2 DM with hyperosmolar nonketotic hyperglycemia Code(s): E11.00 - TYPE 2 DIAB W HYPROSM W/O NONKET HYPRGLY-HYPROS COMA ([facility]) Status: Resolved (8) Hypokalemia Code(s): E87.6 - HYPOKALEMIA Status: Resolved - Plan * . Discussed with case management at rounds. Plan is to see if she can get home health to help with medication compliance. Review of Systems - Review of Systems Cardiovascular: negative: chest pain, palpitations, orthopnea, paroxysmal nocturnal dyspnea, edema, light headedness Gastrointestinal: negative: Nausea, Vomiting, Abdominal Pain, Diarrhea, Constipation, Melena, Hematochezia - Medications/Allergies Allergies/Adverse Reactions: Allergies Allergy/AdvReac Type Severity Reaction Status Date / Time No Known Allergies Allergy Verified 04/06/18 20:24 Medications: Current Medications Acetaminophen (Tylenol) 650 mg PO Q4H PRN PRN Reason: Headache/Fever/Mild Pain (1-3) Last Admin: 04/09/18 20:54 Dose: 650 mg Aripiprazole (Abilify) 10 mg PO HS [facility] Last Admin: 04/09/18 22:04 Dose: 10 mg Atorvastatin Calcium (Lipitor) 80 mg PO [facility] Last Admin: 04/09/18 20:54 Dose: 80 mg Bisacodyl (Dulcolax) 10 mg PO DAILYPRN PRN PRN Reason: Constipation Dextrose/Water (Dextrose 50%) 25 gm SLOW IVP PRN PRN PRN Reason: Hypoglycemia Enoxaparin Sodium (Lovenox) 40 mg SC 0900 [facility] Last Admin: 04/10/18 10:00 Dose: 40 mg Famotidine (Pepcid) 20 mg SLOW IVP Q12HR [facility] Last Admin: 04/10/18 10:01 Dose: Not Given Famotidine (Pepcid) 20 mg PO BID [facility] Last Admin: 04/10/18 08:44 Dose: 20 mg Glucagon (Glucagon) 1 mg IM PRN PRN PRN Reason: Hypoglycemia Glyburide (Micronase) 2.5 mg PO QAM-[facility] Last Admin: 04/10/18 08:44 Dose: 2.5 mg Potassium Chloride/Sodium Chloride (1/2 Ns W/Kcl 20 Meq) 1,000 mls @ 75 mls/hr IV .[id number] [facility] Last Admin: 04/10/18 10:00 Dose: Not Given Dextrose/Water (D5w) 1,000 mls @ 0 mls/hr IV .Q0M PRN PRN Reason: Hypoglycemia Insulin Human Regular (Humulin R) 0 units SC .MODERATE SLIDING SC PRN PRN Reason: Moderate Correctional Scale Last Admin: 04/10/18 11:20 Dose: 10 unit Levothyroxine Sodium (Synthroid) 75 mcg PO 0600 [facility] Last Admin: 04/10/18 07:31 Dose: 75 mcg Magnesium Oxide (Magnesium Oxide) 400 mg PO BIDPRN PRN PRN Reason: FOR SERUM MAG 1.4 - 2.0 Magnesium Oxide (Magnesium Oxide) 800 mg PO PRN PRN PRN Reason: FOR SERUM MAG < 1.4 Metformin HCl (Glucophage Xr) 1,000 mg PO QA-[facility] Last Admin: 04/10/18 08:44 Dose: 1,000 mg Ccu Electrolyte (Replacement Protocol) 0 each FS PRN PRN PRN Reason: FOR ELECTROLYTE REPLACEMENT Ondansetron HCl (Zofran Odt) 4 mg PO Q6H PRN PRN Reason: Nausea/Vomiting Ondansetron HCl (Zofran) 4 mg IVP Q6H PRN PRN Reason: Nausea/Vomiting Last Admin: 04/07/18 05:42 Dose: 4 mg Senna/Docusate Sodium (Senokot S) 2 tab PO BID PRN PRN Reason: Constipation Sodium Chloride (Maben Nasal [place] 0.65%) 0 ml EA NARE TID PRN PRN Reason: Nasal Congestion Venlafaxine HCl (Effexor Xr) 150 mg PO DAILY [facility] Last Admin: 04/10/18 08:44 Dose: 150 mg
[2018-04-10] MEDS: Ondansetron ODT 4 MG TAB PO PRN ×2 (15:05→20:01)
[2018-04-10] MEDS: Atorvastatin Calcium 40 MG TAB PO SCH (20:00)
[2018-04-10] MEDS: Aripiprazole 10 MG TAB PO SCH (21:13)
[2018-04-11] MEDS: Levothyroxine Sodium 75 MCG TAB PO SCH (05:38)
[2018-04-11] MEDS: Insulin Regular 300 UNITS/3 ML VIAL SC PRN ×3 (05:40→16:35)
[2018-04-11] MEDS: 1/2 NS w/KCL 20 mEq 1,000 ML IV SCH (05:45)
[2018-04-11] MEDS ORDERED: glyBURIDE 5 MG TAB PO SCH (07:30)
[2018-04-11 07:31] LABS: Anion Gap 13 mmol/L (10-20); BUN (Urea Nitrogen) 9 mg/dL (9.8-20.1); Calc. Creatinine Clearance 62 mL/min (70-130); Calcium 9.7 mg/dL (7.8-10.44); Carbon Dioxide 17 mmol/L (23-31); Chloride 106 mmol/L (98-107); Estimated GFR-MDRD 60; Glucose 243 mg/dL (80-115); Potassium 3.8 mmol/L (3.5-5.1); Sodium 132 mmol/L (136-145)
[2018-04-11] MEDS: metFORMIN XR 500 MG TAB PO SCH (08:54)
[2018-04-11] MEDS: Famotidine 20 MG TAB PO SCH (08:55)
[2018-04-11] MEDS: Enoxaparin Sodium 40 MG/0.4 ML SYRINGE SC SCH (08:56)
[2018-04-11] MEDS: Famotidine/PF 20 mg/2ml Vial SLOW IVP SCH (08:59)
[2018-04-11] MEDS: Venlafaxine HCl XR 150 MG CAP PO SCH (09:00)
[2018-04-11 15:49] VITALS: BP 136/77; TEMP 98.5
[2018-04-11] MEDS: Ondansetron ODT 4 MG TAB PO PRN (18:14)
--- NOTE | 2018-04-12 02:50 | DIS ---
DATE OF ADMISSION: 04/06/2018 DATE OF DISCHARGE: 04/11/2018 PRIMARY CARE PROVIDER: Dr. Stu Lewis. DISCHARGE DIAGNOSES: 1. Hyperosmolar hyperglycemic syndrome. 2. Medication noncompliance. 3. Acute kidney injury. 4. Hyponatremia. 5. Dehydration. CONDITION OF PATIENT ON THE DAY OF DISCHARGE: Stable. I assessed Ms. Walker on the day of discharge. She denies any chest pain or shortness of breath. Vital signs are stable. S1 and S2 are heard, regular. Lungs are clear to auscultation bilaterally. DISCHARGE MEDICATIONS: 1. Metformin dose has been increased to 1000 mg daily. 2. Glyburide 5 mg daily. 3. Venlafaxine 150 mg daily. 4. Levothyroxine 75 mcg daily. 5. Hydrochlorothiazide 25 mg daily. 6. Atorvastatin 80 mg at bedtime. 7. Aripiprazole 10 mg at bedtime. HOSPITAL COURSE: Ms. Walker is a pleasant 63-year-old lady, who was admitted to [facility] on April 06, 2018, for hyperosmolar hyperglycemic state secondary to medication noncompliance. Please refer to Dr. Tran's history and physical note dated April 07, 2018, for further details. She was treated with intravenous fluids and insulin. She was seen by Pulmonology Service. Her blood sugars improved, and she was started on oral antidiabetic medications. Her metformin dose has been increased to 1000 mg daily. She has been started on glyburide 5 mg daily. She does not want to go on insulin. I have advised her to discuss with her primary care provider. Arrangements are being made for home health for nursing. Her hemoglobin A1c level during this hospitalization was 11.1. On the day of discharge, she has sodium 132, potassium 3.8, and creatinine 0.95. On April 10, she had white count 11,000, hemoglobin 15.4, and platelet count 295,000. Her hydrochlorothiazide was on hold during this hospitalization. It is being resumed at the time of discharge. It is recommended that the sodium level be followed in the future to ensure it is not dropping. Many thanks for allowing me to participate in your patient's care. Please feel free to contact me with any questions or concerns. DISCHARGE DESTINATION: Home. TOTAL AMOUNT OF TIME SPENT COORDINATING THIS DISCHARGE: 33 minutes. Job ID: [id number]
== END 2018-04-11 19:27 | disposition home or self-care (01) | DRG 638 ==
LOC: ERS 15:12 → IMCU/EMU 19:15 → ONC 04-08 11:29 → 3SE 04-09 17:20
PROVIDERS: ADMIT Family Medicine; ATTEND Family Medicine
DX: E11.00 Type 2 diabetes mellitus with hyperosmolarity without nonketotic hyperglycemic-hyperosmolar coma (NKHHC) (principal); E87.0 Hyperosmolality and hypernatremia; N17.9 Acute kidney failure, unspecified; E86.0 Dehydration; T38.3X6A Underdosing of insulin and oral hypoglycemic [antidiabetic] drugs, initial encounter; Z91.14 Patient's other noncompliance with medication regimen; E03.9 Hypothyroidism, unspecified; K21.9 Gastro-esophageal reflux disease without esophagitis; E78.5 Hyperlipidemia, unspecified; I10 Essential (primary) hypertension; F41.8 Other specified anxiety disorders; E78.00 Pure hypercholesterolemia, unspecified; Z91.5 Personal history of self-harm; F31.9 Bipolar disorder, unspecified; Z79.84 Long term (current) use of oral hypoglycemic drugs
CPT/HCPCS: 36415; 36416; 80048; 80053; 81003; 82330; 82803; 83036; 83690; 83735; 83930; 84100; 85025; 96361; 96365; 96366; 96374; 96375; C9113; J0360; J1650; J1815; J2405; J7050; Q0162; S0028

== ENCOUNTER 2020-04-13 11:26 | Emergency (ER) | payer OTHER, SELFPAY ==
[2020-04-13] MEDS ORDERED: Ondansetron PF 4 MG/2 ML Vial ONE (11:53)
[2020-04-13 12:28] LABS: #Basophils 0.1 thou/uL (0.0-0.2); #Eosinphils 0.4 thou/uL (0.0-0.7); #Lymphocytes 3.6 thou/uL (1.20-3.40); #Monocytes 0.8 thou/uL (0.11-0.59); %Basophils 0.7 % (0.0-1.0); %Eosinophils 3.7 % (0.0-10.0); %Lymphocytes 36.4 % (21.0-51.0); %Monocytes 8.4 % (0.0-10.0); %Neutrophils 50.8 % (42.0-75.0); Hemoglobin 15.5 g/dL (12.0-16.0); Mean Corpuscular HGB CONC 34.1 g/dL (32.0-36.0); Mean Corpuscular Hemoglobin 31.1 pg (27.0-31.0); Mean Corpuscular Volume 91.1 fL (78.0-98.0); Mean Platelet Volume 7.8 fL (7.4-10.4); Platelet Count 313 thou/uL (130-400); RBC Distribution Width 12.5 % (11.5-14.5); Red Blood Cell (RBC) Count 4.97 mill/uL (4.20-5.40); White Blood Cell (WBC) Count 9.8 thou/uL (4.8-10.8)
--- NOTE | 2020-04-13 12:41 | RAD ---
EXAM: Chest one view: HISTORY: Not feeling well, intermittent nausea COMPARISON: None FINDINGS: Heart size: Within normal limits. Lungs: Clear of acute process. No evidence for confluent lobar pneumonia, significant pleural effusion, acute edema, or pneumothorax , or other significant acute process. IMPRESSION: No significant acute intrathoracic disease.
[2020-04-13 13:00] LABS: ALT (SGPT) 28 U/L (8-55); AST (SGOT) 26 U/L (5-34); Alkaline Phosphatase 75 U/L (40-110); Anion Gap 20 mmol/L (10-20); BUN (Urea Nitrogen) 12 mg/dL (9.8-20.1); Bilirubin, Total 0.5 mg/dL (0.2-1.2); CK (CPK) 91 U/L (29-168); Calc. Creatinine Clearance 0 mL/min (70-130); Calcium 9.1 mg/dL (7.8-10.44); Carbon Dioxide 19 mmol/L (23-31); Chloride 101 mmol/L (98-107); Globulin 3.6 g/dL (2.4-3.5); Glucose 197 mg/dL (80-115); Potassium 3.9 mmol/L (3.5-5.1); Protein, Total 7.6 g/dL (6.0-8.3); Sodium 136 mmol/L (136-145)
[2020-04-13 13:52] LABS: Bilirubin Negative (Negative); Blood, Urine Negative (Negative); Clarity Clear (Clear); Glucose, Urine (Dipstick) Normal (Negative); Ketone, Urine Negative (Negative); Leukocyte Negative Leu/uL (Negative); Nitrite Negative (Negative); Protein, Urine (Dipstick) Negative (Neg-Trace); Specific Gravity, Urine 1.008 (1.002-1.036); Urobilinogen Normal mg/dL (Less than 2); pH, Urine 5.5 (5.0-9.0)
[2020-04-13 15:51] LABS: Lactic Acid 2.6 mmol/L (0.5-2.2)
[2020-04-13 22:35] LABS: SARS-CoV-2 MS2 Positive; SARS-CoV-2 N Gene Negative; SARS-CoV-2 S Gene Negative; SARS-CoV-2 by NAA Not Detected (NotDetected); SARS-CoV-2 orf1ab Negative
== END 2020-04-13 16:11 | disposition home or self-care (01) ==
LOC: ERS 11:26
DX: E87.2 Acidosis (principal); Z20.828 Contact with and (suspected) exposure to other viral communicable diseases; E03.9 Hypothyroidism, unspecified; K21.9 Gastro-esophageal reflux disease without esophagitis; E11.9 Type 2 diabetes mellitus without complications; I10 Essential (primary) hypertension; E78.00 Pure hypercholesterolemia, unspecified; E78.5 Hyperlipidemia, unspecified; Z87.891 Personal history of nicotine dependence; Z79.84 Long term (current) use of oral hypoglycemic drugs; Z79.899 Other long term (current) drug therapy
CPT/HCPCS: 36415; 71045; 80053; 81003; 82550; 83605; 83690; 84484; 85025; 87635; 87804; 93005; 96374; J2405; U0003

== ENCOUNTER 2021-10-02 14:28 | Outpatient (CLI) | payer MEDICARE, MEDICAID | END 2021-10-02 14:29 | disposition home or self-care (01) | LOC: BICCT 14:28 | PROVIDERS: ATTEND Family Medicine | DX: G44.309 Post-traumatic headache, unspecified, not intractable (principal); S06.9X9D Unspecified intracranial injury with loss of consciousness of unspecified duration, subsequent encounter; H53.8 Other visual disturbances; W19.XXXD Unspecified fall, subsequent encounter | CPT/HCPCS: 70450 ==

== ENCOUNTER 2022-05-18 12:32 | Outpatient (CLI) | payer MEDICARE, MEDICAID | END 2022-05-18 12:33 | disposition home or self-care (01) | LOC: ULT 12:32 | PROVIDERS: ATTEND Internal Medicine Nephrology | DX: I12.9 Hypertensive chronic kidney disease with stage 1 through stage 4 chronic kidney disease, or unspecified chronic kidney disease (principal); N18.9 Chronic kidney disease, unspecified | CPT/HCPCS: 76770; 93975 ==

== ENCOUNTER 2023-04-08 10:00 | Outpatient (CLI) | payer MEDICARE, MEDICAID | END 2023-04-08 10:01 | disposition home or self-care (01) | LOC: BICMAMMO 10:00 | PROVIDERS: ATTEND Family Medicine | DX: Z12.31 Encounter for screening mammogram for malignant neoplasm of breast (principal) | CPT/HCPCS: 77063; 77067 ==

== ENCOUNTER 2023-06-01 11:41 | Emergency (ER) | payer MEDICARE, MEDICAID ==
[2023-06-01 12:23] LABS: #Basophils 0.1 thou/uL (0.0-0.2); #Eosinphils 0.4 thou/uL (0.0-0.7); #Monocytes 0.9 thou/uL (0.11-0.59); #Neutrophils 4.6 thou/uL (1.40-6.50); %Eosinophils 4.7 % (0.0-10.0); %Lymphocytes 31.9 % (21.0-51.0); %Neutrophils 51.9 % (42.0-75.0); Hematocrit 42.9 % (36.0-47.0); Hemoglobin 14.4 g/dL (12.0-16.0); Mean Corpuscular HGB CONC 33.6 g/dL (32.0-36.0); Mean Corpuscular Volume 92.5 fl (78.0-98.0); Mean Platelet Volume 9.8 fL (7.4-10.4); Platelet Count 304 10x3/uL (130-400); RBC Distribution Width 14.4 % (11.5-14.5); Red Blood Cell (RBC) Count 4.64 mill/uL (4.20-5.40); White Blood Cell (WBC) Count 8.8 10x3/uL (4.8-10.8)
[2023-06-01 12:44] LABS: ALT (SGPT) 23 U/L (8-55); AST (SGOT) 19 U/L (5-34); Albumin 4.2 g/dL (3.4-4.8); Alkaline Phosphatase 78 U/L (40-110); Anion Gap 13 mmol/L (10-20); BUN (Urea Nitrogen) 15 mg/dL (9.8-20.1); Bilirubin, Total 0.4 mg/dL (0.2-1.2); Calc. Creatinine Clearance 0 mL/min (70-130); Calcium 9.7 mg/dL (7.8-10.44); Carbon Dioxide 21 mmol/L (23-31); Chloride 108 mmol/L (98-107); Estimated GFR 46; Globulin 3.4 g/dL (2.4-3.5); Glucose 275 mg/dL (80-115); Lipase 37 U/L (8-78); Magnesium 1.7 mg/dL (1.6-2.6); Protein, Total 7.6 g/dL (5.8-8.1); Sodium 138 mmol/L (136-145)
[2023-06-01 12:48] LABS: Troponin I Less than 0.010 ng/mL (< 0.028)
== END 2023-06-01 13:13 | disposition home or self-care (01) ==
LOC: ERS 11:41
DX: F19.939 Other psychoactive substance use, unspecified with withdrawal, unspecified (principal); F41.9 Anxiety disorder, unspecified; E03.9 Hypothyroidism, unspecified; E78.00 Pure hypercholesterolemia, unspecified; E11.9 Type 2 diabetes mellitus without complications; I10 Essential (primary) hypertension; Z87.891 Personal history of nicotine dependence; Z79.899 Other long term (current) drug therapy
CPT/HCPCS: 36415; 71045; 80053; 83690; 83735; 84484; 85025; 93005

== ENCOUNTER 2024-02-29 11:55 | Emergency (ER) | payer MEDICARE, MEDICAID ==
[2024-02-29 12:29] LABS: #Basophils 0.05 10x3/uL (0.0-0.2); %Basophils 0.7 % (0.0-1.0); %Eosinophils 2.8 % (0.0-10.0); %Lymphocytes 27.2 % (21.0-51.0); %Monocytes 10.4 % (0.0-10.0); %Neutrophils 58.4 % (42.0-75.0); Hematocrit 41.4 % (36.0-47.0); Hemoglobin 13.8 g/dL (12.0-16.0); Mean Corpuscular HGB CONC 33.3 g/dL (32.0-36.0); Mean Corpuscular Hemoglobin 30.3 pg (27.0-31.0); Mean Corpuscular Volume 90.8 fL (78.0-98.0); Mean Platelet Volume 9.9 fL (7.4-10.4); Platelet Count 310 10x3/uL (130-400); RBC Distribution Width 14.3 % (11.5-14.5); Red Blood Cell (RBC) Count 4.56 mill/uL (4.20-5.40)
[2024-02-29 12:55] LABS: Alcohol Less than 10.0 mg/dL (Less than 10)
[2024-02-29 12:57] LABS: Acetaminophen Less than 10 mcg/mL (Less than 10); Alcohol Less than 10.0 mg/dL (Less than 10); Salicylate Less than 8.0 mg/dL (Less than 8.0)
[2024-02-29 12:58] LABS: ALT (SGPT) 25 U/L (8-55); AST (SGOT) 18 U/L (5-34); Albumin 3.8 g/dL (3.4-4.8); Alkaline Phosphatase 67 U/L (40-110); Anion Gap 14 mmol/L (10-20); BUN (Urea Nitrogen) 17 mg/dL (9.8-20.1); Bilirubin, Total 0.4 mg/dL (0.2-1.2); Calc. Creatinine Clearance 0 mL/min (70-130); Calcium 9.7 mg/dL (7.8-10.44); Carbon Dioxide 20 mmol/L (23-31); Chloride 107 mmol/L (98-107); Estimated GFR 44; Globulin 3.8 g/dL (2.4-3.5); Glucose 310 mg/dL (80-115); Potassium 3.8 mmol/L (3.5-5.1); Protein, Total 7.6 g/dL (5.8-8.1); Sodium 137 mmol/L (136-145)
[2024-02-29 13:23] LABS: Bacteria/HPF None Seen HPF (None Seen); Bilirubin Negative (Negative); Blood, Urine Negative (Negative); CAUTI Indications for Culture Dysuria,urgency,freq; Clarity Clear (Clear); Glucose, Urine (Dipstick) Greater than 1000 mg/dL (Negative); Ketone, Urine Negative (Negative); Leukocyte Negative Leu/uL (Negative); Nitrite Negative (Negative); Protein, Urine (Dipstick) Negative (Neg-Trace); RBC/HPF 0-3 HPF (0-3); Specific Gravity, Urine 1.022 (1.002-1.036); Squamous Epithelial 0-3 HPF (0-3); Urobilinogen Normal mg/dL (Less than 2); WBC/HPF 0-3 HPF (0-3); pH, Urine 5.5 (5.0-9.0)
[2024-02-29 13:25] LABS: Amphetamine Not Detected (NotDetected); Barbiturates Screen Not Detected (NotDetected); Benzodiazepine Screen Not Detected (NotDetected); Cocaine Metabolite Screen Not Detected (NotDetected); Methadone Not Detected (NotDetected); Methamphetamine Not Detected (NotDetected); Opiate Screen Not Detected (NotDetected); Oxycodone Screen Not Detected (NotDetected); Phencyclidine (PCP) Not Detected (NotDetected); THC/Cannabinoid Screen Not Detected (NotDetected); Tricyclic Screen Not Detected (NotDetected); Urine Culture Reflex No No
== END 2024-02-29 19:03 ==
LOC: ERS 11:55
DX: F32.9 Major depressive disorder, single episode, unspecified (principal); E11.65 Type 2 diabetes mellitus with hyperglycemia; Z87.891 Personal history of nicotine dependence; T68.XXXA Hypothermia, initial encounter; Z79.899 Other long term (current) drug therapy; R45.851 Suicidal ideations
CPT/HCPCS: 36415; 36416; 80053; 80306; 80307; 81001; 84443; 85025; 99285

== ENCOUNTER 2025-01-29 10:28 | Emergency (ER) | payer MEDICARE, OTHER ==
[2025-01-29] MEDS ORDERED: risperiDONE 1 MG TAB ONE (11:08)
[2025-01-29 11:33] LABS: #Basophils 0.07 10x3/uL (0.0-0.2); #Eosinophils 0.17 10x3/uL (0.0-0.7); #Monocytes 0.72 10x3/uL (0.11-0.59); #Neutrophils 3.76 10x3/uL (1.40-6.50); %Basophils 1.1 % (0.0-1.0); %Eosinophils 2.6 % (0.0-10.0); %Lymphocytes 26.9 % (21.0-51.0); %Monocytes 11.1 % (0.0-10.0); %Neutrophils 58.0 % (42.0-75.0); Hematocrit 38.1 % (36.0-47.0); Hemoglobin 12.5 g/dL (12.0-16.0); Mean Corpuscular Hemoglobin 28.7 pg (27.0-31.0); Mean Corpuscular Volume 87.6 fL (78.0-98.0); Platelet Count 391 10x3/uL (130-400); Red Blood Cell (RBC) Count 4.35 mill/uL (4.20-5.40); White Blood Cell (WBC) Count 6.48 10x3/uL (4.8-10.8)
[2025-01-29 12:01] LABS: Acetaminophen Less than 10 mcg/mL (Less than 10); Salicylate Less than 8.0 mg/dL (Less than 8.0)
[2025-01-29 12:04] LABS: ALT (SGPT) 15 U/L (Less than 34); AST (SGOT) 24 U/L (11-34); Albumin 3.1 g/dL (3.1-4.5); Alkaline Phosphatase 83 U/L (40-110); Anion Gap 20 mmol/L (10-20); BUN (Urea Nitrogen) 24 mg/dL (9.8-20.1); Bilirubin, Total 0.6 mg/dL (0.3-1.2); Calc. Creatinine Clearance 0 mL/min (70-130); Calcium 9.6 mg/dL (7.8-10.44); Carbon Dioxide 15 mmol/L (23-31); Chloride 110 mmol/L (98-107); Globulin 3.8 g/dL (2.4-3.5); Glucose 130 mg/dL (80-115); Potassium 3.6 mmol/L (3.5-5.1); Sodium 141 mmol/L (136-145)
[2025-01-29 12:53] LABS: Cocaine Metabolite Screen Negative (Negative); THC/Cannabinoid Screen Negative (Negative); Tricyclic Screen Negative (Negative)
== END 2025-01-30 10:19 ==
LOC: EEVIPCON 10:28 → ERS 10:28
DX: S50.12XA Contusion of left forearm, initial encounter (principal); R45.851 Suicidal ideations; E11.9 Type 2 diabetes mellitus without complications; I10 Essential (primary) hypertension; Z87.891 Personal history of nicotine dependence; X83.8XXA Intentional self-harm by other specified means, initial encounter; Z55.6 Problems related to health literacy
CPT/HCPCS: 36415; 80053; 80306; 80307; 85025; 93005; 99285